=== PATIENT | female | born 1985 | race Caucasian/White ===

== ENCOUNTER 2017-11-25 21:42 | Emergency (ER) | payer MEDICAID, OTHER ==
[2017-11-26 01:42] LABS: URINE PH (Dip) POC 6.5 (5.0-8.5)
[2017-11-26 01:42] LABS: URINE BLOOD (Dip) POC 1+ (NEGATIVE); URINE GLUCOSE (Dip) POC Negative (NEGATIVE); URINE KETONES (Dip) POC 1+ (NEGATIVE); URINE LEUKOCYTE EST (Dip) POC Negative (NEGATIVE); URINE NITRITE (Dip) POC Negative (NEGATIVE); URINE TOTAL PROTEIN POC Negative (NEGATIVE)
[2017-11-26 02:27] LABS: ADD MAN DIFF? NO
[2017-11-26 02:33] LABS: BASOPHILS % 0.3 % (0.0-2.0); EOSINOPHILS # 0.3 10^3/ul (0.0-0.5); EOSINOPHILS % 3.9 % (0.0-7.0); HEMATOCRIT 36.4 % (37.0-47.0); HEMOGLOBIN 12.6 g/dl (12.0-16.0); LYMPHOCYTES # 2.5 10^3/ul (0.8-2.9); LYMPHOCYTES % 38.5 % (15.0-51.0); MEAN CORPUSCULAR HEMOGLOBIN 30.5 pg (29.0-33.0); MEAN CORPUSCULAR HGB CONC 34.6 g/dl (32.0-37.0); MEAN CORPUSCULAR VOLUME 88.1 fl (82.0-101.0); MEAN PLATELET VOLUME 11.3 fl (7.4-10.4); MONOCYTE # 0.8 10^3/ul (0.3-0.9); MONOCYTES % 12.8 % (0.0-11.0); NEUTROPHIL # 2.9 10^3/ul (1.6-7.5); NEUTROPHILS % 44.3 % (39.0-77.0); PLATELET COUNT 274 10^3/UL (140-415); RED BLOOD COUNT 4.13 10^6/ul (4.20-5.40); RED CELL DISTRIBUTION WIDTH 11.9 % (11.5-14.5)
[2017-11-26 02:33] LABS: WHITE BLOOD COUNT 6.5 10^3/ul (4.8-10.8)
== END 2017-11-26 03:57 | disposition home or self-care (01) ==
LOC: FTE 21:42
DX: O26.891 Other specified pregnancy related conditions, first trimester (principal); R10.2 Pelvic and perineal pain; Z3A.08 8 weeks gestation of pregnancy
CPT/HCPCS: 36415; 76801; 76817; 81003; 81025; 84702; 85025; 86900; 86901; 99284-25

== ENCOUNTER 2018-07-21 22:25 | Inpatient (IN) | payer MEDICAID ==
[2018-07-21] MEDS ORDERED: CARBOPROST 250 MCG INJ IM (23:30)
[2018-07-21] MEDS ORDERED: IBUPROFEN 600 MG TAB PO (23:30)
[2018-07-21] MEDS ORDERED: BUTORPHANOL 2 MG INJ IV (23:30)
[2018-07-21] MEDS ORDERED: OXYTOCIN 30 UNITS/LR 500 ML IV ×2 (23:30)
[2018-07-21] MEDS ORDERED: METHYLERGONOVINE 0.2 MG INJ IM (23:30)
[2018-07-21] MEDS ORDERED: LIDOCAINE 1% (MPF) 30 ML INJ INJ (23:30)
[2018-07-21] MEDS ORDERED: OXYCODONE/ASPIRIN (4.88/325) TAB PO (23:30)
[2018-07-21] MEDS ORDERED: MISOPROSTOL 200 MCG TAB PR (23:30)
[2018-07-22] MEDS: LACTATED RINGER'S 1,000 ML IV ×5 (00:03→23:22)
[2018-07-22] MEDS: AMPICILLIN 2 GM/NS (PMX) 100 ML IV (00:27)
[2018-07-22 01:28] LABS: ADD MAN DIFF? NO
[2018-07-22 01:31] LABS: WHITE BLOOD COUNT 10.4 10^3/ul (4.8-10.8)
[2018-07-22 01:31] LABS: BASOPHILS % 0.3 % (0.0-2.0); EOSINOPHILS # 0.1 10^3/ul (0.0-0.5); EOSINOPHILS % 0.9 % (0.0-7.0); HEMATOCRIT 32.1 % (37.0-47.0); HEMOGLOBIN 10.7 g/dl (12.0-16.0); LYMPHOCYTES # 1.4 10^3/ul (0.8-2.9); LYMPHOCYTES % 13.7 % (15.0-51.0); MEAN CORPUSCULAR HGB CONC 33.3 g/dl (32.0-37.0); MEAN CORPUSCULAR VOLUME 89.9 fl (82.0-101.0); MEAN PLATELET VOLUME 11.6 fl (7.4-10.4); MONOCYTE # 1.1 10^3/ul (0.3-0.9); MONOCYTES % 10.5 % (0.0-11.0); NEUTROPHIL # 7.6 10^3/ul (1.6-7.5); NEUTROPHILS % 73.2 % (39.0-77.0); PLATELET COUNT 284 10^3/UL (140-415); RED BLOOD COUNT 3.57 10^6/ul (4.20-5.40)
[2018-07-22 01:49] LABS: INR 0.86; PARTIAL THROMBOPLASTIN TIME 27.5 Sec (23.0-35.0); PROTIME 11.8 Sec (11.9-14.9); PT RATIO 0.9
[2018-07-22] MEDS: OXYTOCIN 30 UNITS/LR 500 ML IV (02:32)
[2018-07-22] MEDS: AMPICILLIN 1 GM/NS (PMX) 50 ML IV ×6 (04:10→23:24)
[2018-07-22] MEDS ORDERED: FENTAnyl 2MCG/ML-ROPIV 0.2% 100 ML (10:55)
[2018-07-22] MEDS ORDERED: NALOXONE (0.4 MG/ML) INJ IV (11:00)
[2018-07-22] MEDS: FENTAnyl 2MCG/ML-ROPIV 0.2% 100 ML BAG EPI ×2 (11:16→20:33)
[2018-07-22 20:47] LABS: RAPID PLASMA REAGIN NONREACTIVE (NR)
[2018-07-23] MEDS: OXYTOCIN 30 UNITS/LR 500 ML IV (01:43)
[2018-07-23] MEDS ORDERED: DIBUCAINE 1% 30 GM OINT TOP (03:30)
[2018-07-23] MEDS ORDERED: OXYTOCIN 30 UNITS/LR 500 ML IV (03:30)
[2018-07-23] MEDS ORDERED: MISOPROSTOL 200 MCG TAB PR (03:30)
[2018-07-23] MEDS ORDERED: METHYLERGONOVINE 0.2 MG INJ IM (03:30)
[2018-07-23] MEDS ORDERED: ACETAMINOPHEN 325 MG TAB PO (03:30)
[2018-07-23] MEDS ORDERED: CARBOPROST 250 MCG INJ IM (03:30)
[2018-07-23] MEDS: HYDROCODONE/APAP (5/325) TAB PO ×3 (04:55→21:55)
[2018-07-23] MEDS: BENZOCAINE 20% 56 ML SPRAY TOP (04:55)
[2018-07-23] MEDS: LANOLIN 7 GM TUBE TOP (04:55)
[2018-07-23] MEDS: WITCH HAZEL/GLYCERIN PAD PR (04:55)
[2018-07-23] MEDS: LACTATED RINGER'S 1,000 ML IV* ×2 (05:44→08:44)
[2018-07-23] MEDS: IBUPROFEN 600 MG TAB PO ×4 (05:45→23:36)
[2018-07-23] MEDS: SENNA/DOCUSATE NA (8.6MG/50MG) TAB PO ×2 (08:09→21:49)
[2018-07-24] MEDS: IBUPROFEN 600 MG TAB PO ×4 (06:00→23:44)
[2018-07-24 08:09] LABS: ADD MAN DIFF? NO
[2018-07-24 08:16] LABS: BASOPHILS % 0.3 % (0.0-2.0); EOSINOPHILS # 0.2 10^3/ul (0.0-0.5); EOSINOPHILS % 1.8 % (0.0-7.0); HEMATOCRIT 29.8 % (37.0-47.0); HEMOGLOBIN 9.7 g/dl (12.0-16.0); LYMPHOCYTES # 1.6 10^3/ul (0.8-2.9); LYMPHOCYTES % 15.6 % (15.0-51.0); MEAN CORPUSCULAR HEMOGLOBIN 29.7 pg (29.0-33.0); MEAN CORPUSCULAR HGB CONC 32.6 g/dl (32.0-37.0); MEAN CORPUSCULAR VOLUME 91.1 fl (82.0-101.0); MEAN PLATELET VOLUME 11.5 fl (7.4-10.4); MONOCYTE # 0.9 10^3/ul (0.3-0.9); MONOCYTES % 9.1 % (0.0-11.0); NEUTROPHIL # 7.2 10^3/ul (1.6-7.5); NEUTROPHILS % 71.7 % (39.0-77.0); PLATELET COUNT 251 10^3/UL (140-415); RED BLOOD COUNT 3.27 10^6/ul (4.20-5.40); RED CELL DISTRIBUTION WIDTH 13.4 % (11.5-14.5)
[2018-07-24] MEDS: SENNA/DOCUSATE NA (8.6MG/50MG) TAB PO ×2 (09:46→21:44)
[2018-07-25] MEDS: IBUPROFEN 600 MG TAB PO ×2 (06:00→12:00)
[2018-07-25] MEDS: SENNA/DOCUSATE NA (8.6MG/50MG) TAB PO (08:56)
[2018-07-25] MEDS: DIPHTH/TET/ACEL PERTUSS (ADULT) 0.5 ML VIAL IM* (09:13)
== END 2018-07-25 16:34 | disposition home or self-care (01) | DRG 807 ==
LOC: OBT 22:25 → L-D 07-23 01:51 → PP1 07-23 03:32 → OBT 23:00 → L-D 23:00
PROVIDERS: Obstetrics & Gynecology
PROC: 4A1HXCZ Monitoring of Products of Conception, Cardiac Rate, External Approach (ICD-10-PCS; 2018-07-21)
PROC: 10E0XZZ Delivery of Products of Conception, External Approach (ICD-10-PCS; principal; 2018-07-23)
PROC: 0HQ9XZZ Repair Perineum Skin, External Approach (ICD-10-PCS; 2018-07-23)
PROC: 3E0234Z Introduction of Serum, Toxoid and Vaccine into Muscle, Percutaneous Approach (ICD-10-PCS; 2018-07-25)
DX: O70.0 First degree perineal laceration during delivery (principal); Z37.0 Single live birth; Z3A.39 39 weeks gestation of pregnancy; Z23 Encounter for immunization
CPT/HCPCS: 62319; 76815; 76816; 85025; 85610; 85730; 86592; 86850; 86900; 86901; 90715